=== PATIENT | male | born 1965 | race Caucasian/White ===

== ENCOUNTER 2017-02-18 15:40 | Emergency (ER) | payer OTHER ==
[~2017-02-18] VITALS: Wt 92.6 kg
--- NOTE | 2017-02-18 18:25 | ERD ---
ER Documentation Chief Complaint Chief Complaint RIGHT UPPER EYELID PAIN, PAIN ON LEFT SIDE OF NECK, NO SOB HPI This 51-year-old male patient presents to emergency department for 2 unrelated complaints, first complaint is a right upper eye sore papule with discharge x 3 days. Second complaint is sore throat with palpable mass on left neck. Patient denies runny nose , cough or fever, able to eat and drink with out defect. last saw PMD 90 days ago reports normal exam, denies smoking, take no routine medication patient reports a history of recent amoxicillin use for gingival infection, patient states he needs a deep scalene, states he did not complete antibiotic course for no particular reason. ROS All systems reviewed and are negative except as per history of present illness. Medications Home Meds Active Scripts Tobramycin Sulfate* (Tobrex*) 3.5 Gm Oint..gm., 1 APPLIC RIGHT EYE TID for 7 Days, EA Prov:MOEGENARO 02/18/17 Allergies Allergies: Coded Allergies: No Known Allergy (Unverified , 02/18/17) Physical Exam Vitals Vital Signs Date Time Temp Pulse Resp B/P Pulse Ox O2 Delivery O2 Flow Rate FiO2 02/18/17 15:44 98.4 83 17 145/100 97 Physical Exam Const: Well-nourished well-appearing well-hydrated 51-year-old male patient in no acute distress Head: Eye Exam: Visual Acuity: [XOXOXO] Lac ducts/glands: No swelling Lids w/ evertion: Right upper eye presents with external tender purulent papule mild upper eyelid edema lateral canthus around papule Conj/[place]: Clear, negative Fluorescein/[facility]: Lateral tympanic membranes are translucent, nasal mucosa is edematous, turbinates +2, mucous noted, septal wall without bleeding point, no maxillary or frontal sinus tenderness,, pharynx is dark pink, with no visualized tonsils, uvula is midline without shift, rises and falls with pronation, Neck: Full range of motion.. Unilateral facial swelling over parotid region below the jaw, under the tongue. Resp: Respirations even and unlabored, no respiratory distress Cardio: Abd: Skin: Back: Ext: Neur: Awake and alert Psych: Patient is agitated but calm responds to slow discussion and explanation of treatment plan Result Diagram: 11/24/17 1930 11/24/17 1930 Results 24 hrs Laboratory Tests Test 02/18/17 19:30 White Blood Count 8.010^3/ul Red Blood Count 4.9510^6/ul Hemoglobin 15.4g/dl Hematocrit 44.1% Mean Corpuscular Volume 89.1fl Mean Corpuscular Hemoglobin 31.1pg Mean Corpuscular Hemoglobin Concent 34.9g/dl Red Cell Distribution Width 12.4% Platelet Count 73052^3/UL Mean Platelet Volume 10.0fl Neutrophils % 51.9% Lymphocytes % 34.0% Monocytes % 8.5% Eosinophils % 4.6% Basophils % 0.6% Nucleated Red Blood Cells % 0.0/100WBC Neutrophils # 4.110^3/ul Lymphocytes # 2.710^3/ul Monocytes # 0.710^3/ul Eosinophils # 0.410^3/ul Basophils # 0.110^3/ul Nucleated Red Blood Cells # 0.010^3/ul Sodium Level 144mmol/L Potassium Level 3.8mmol/L Chloride Level 104mmol/L Carbon Dioxide Level 26mmol/L Anion Gap 18 Blood Urea Nitrogen 19mg/dl Creatinine 1.04mg/dl Glucose Level 92mg/dl Calcium Level 9.3mg/dl Total Bilirubin 0.4mg/dl Direct Bilirubin 0.00mg/dl Indirect Bilirubin 0.4mg/dl Aspartate Amino Transf (AST/SGOT) 25IU/L Alanine Aminotransferase (ALT/SGPT) 40IU/L Alkaline Phosphatase 72IU/L Total Protein 8.7g/dl Albumin 4.8g/dl Globulin 3.90g/dl Albumin/Globulin Ratio 1.23 Current Medications Medications (Trade) Dose Ordered Sig/Jose Miguel Route PRN Reason Start Time Stop Time Status Last Admin Dose Admin IV Flush 10 ml 10 ml STK-MED ONCE .ROUTE 02/18/17 20:26 02/18/17 20:27 DC 02/18/17 20:38 Sodium Chloride (NS) 100 ml @ ud STK-MED ONCE .ROUTE 02/18/17 20:26 02/18/17 20:27 DC 02/18/17 20:38 Iohexol (Omnipaque 300mg/ ml) 150 ml STK-MED ONCE .ROUTE 02/18/17 20:27 02/18/17 20:28 DC 02/18/17 20:39 Interpretation text CBC shows no evidence of hemorrhage or infection Chemistry shows no evidence of significant electrolyte abnormalities or renal insufficiency Liver function tests shows no evidence of acute biliary or hepatic dysfunction Lipase shows no evidence of acute pancreatitis . Procedures/MDM PROCEDURE: CT Neck with contrast CLINICAL INDICATION: Pain TECHNIQUE: CT of the neck was performed following the intravenous administration of 100 cc Isovue 300 IV Contrast. Axial images were obtained through the neck with multiplanar reformatted images generated from the axial acquired data. The administered radiation dose was CTDI vol = 15 mGy, DLP = 468 mGy-cm. One or more of the following dose reduction techniques were used: automated exposure control, adjustment of the mA and/or kV according to patient size and/or use of iterative reconstruction technique. DICOM images are available. COMPARISON: No pertinent prior examinations were submitted for comparison. FINDINGS: Skull/Brain: The visualized portions of the brain are grossly unremarkable.The visualized orbits are unremarkable.The visualized paranasal sinuses are well aerated.The bilateral mastoid air cells are within normal limits. Parotid glands: Unremarkable Submandibular glands: Unremarkable Thyroid gland: Unremarkable Vasculature: Unremarkable Lymph nodes: Enlarged lymph nodes are seen within the bilateral submandibular spaces, slightly more prominent on the left. A lymph node just inferior to the left parotid gland has some mild surrounding fat infiltrative changes. This measures up to 13 mm in long axis. Aerodigestive tract: There is streak artifact from dental hardware limiting evaluation of the oral cavity.There is no definite evidence of aerodigestive tract effacement. Other: The lung apices are unremarkable. Osseous structures: No destructive lytic or blastic osseous lesion is identified. IMPRESSION: Left greater than right submandibular adenopathy along with an enlarged and inflamed lymph node just inferior to the left parotid gland. Findings may be related to infection, neoplasm or other entities. No drainable fluid collections are identified. RPTAT: HIKT .Martin Mayer MD, Date Time Electronically viewed and signed by .Martin Mayer MD, on 02/18/2017 21:06 This 51-year-old male patient presents to emergency department for 2 complaints , first complaint is a painful papule on right eye, second complaint is a palpable tender mass on the left side of neck. She denies any dysphagia fever, emergency room course includes history and physical exam no exudative pus from salivary gland , but gland is tender to palpation, plan to obtain CBC, CMP, and CAT scan for suspected parotiditis. Laboratory testing unremarkable for infection or anemia electrolyte dysfunction or renal insufficiency. No hepatitis or other biliary disease. CAT scan with IV contrast radiology interpretation is left greater than right submandibular adenopathy along with an enlarged and inflamed lymph node just anterior to the left parotid gland findings may be related to infection, neoplasm, or other entity no drainable fluid collections are identified. This case discussed with supervising physician Dr. Ruiz, plan to treat with Augmentin 875 1 tab p.o. twice daily 10 days and follow-up with primary care physician for monitoring of lymph node and reevaluation. Patient also has findings of a right upper eyelid hordeolum treat with tobramycin twice daily 7 days. Warm compresses to affected area 3 times daily. Patient is stable with no new complaints during ER course, clinically there is no current evidence to suggest meningitis, sepsis, acute abdomen, acute coronary syndromes, pulmonary embolism or any other emergent condition appearing to require further evaluation or hospitalization. I feel the patient is stable for discharge at this time. I have discussed results, examination findings, the treatment plan with the patient and family present prior to discharge. Indications for emergent reevaluation, side effects of medication were also discussed. All questions were answered. Patient verbalizes understanding and agrees with plan of care. Departure Diagnosis: Primary Impression: Lymph node enlargement Additional Impression: Sty, external Laterality: right Eyelid: upper Qualified Code: H00.011 - Hordeolum externum of right upper eyelid Condition: Good Patient Instructions: Rachel Additional Instructions: Thank you for for coming to [facility] for your care today. Please ask your nurse or provider if you have questions about your care today and do not leave until all your questions have been answered. Please use any medications given as directed and follow-up with your doctor (or the doctor you were referred to) in the next 2-3 days. If you do not have a primary care doctor you may follow up at the [facility] (listed below). You may also use motrin and tylenol as needed for fever and/or pain unless instructed otherwise by your provider or nurse. Indications for more urgent follow-up have been discussed, but you may return to the Emergency Department at ANY time for any worrisome or worsening symptoms. If you have abdominal pain, please know that no test or exam you received is perfect and you should follow up within 8 hours for continued pain. If you had any imaging studies today, such as an X-Ray or CT Scan, these studies will be reviewed later by a radiologist. You will be called if there are important findings that were not identified today, so make sure the contact information you provided at registration is correct. If you received any narcotic pain control medicine today, such as Vicodin, Morphine or Dilaudid, your coordination and judgment may be affected for a number of hours. Please do not drive or operate heavy machinery, and you may want someone to assist you at home. If you were given a prescription for narcotic medication, be aware that it is very addictive- use sparingly and only if necessary. GENARO ROSA Feb 18, 2017 18:25
[2017-02-18 19:44] LABS: BASOPHIL # 0.1 10^3/ul (0.0-0.1); BASOPHILS % 0.6 % (0.0-2.0); EOSINOPHILS # 0.4 10^3/ul (0.0-0.5); EOSINOPHILS % 4.6 % (0.0-7.0); HEMATOCRIT 44.1 % (42.0-52.0); HEMOGLOBIN 15.4 g/dl (14.0-18.0); LYMPHOCYTES # 2.7 10^3/ul (0.8-2.9); MEAN CORPUSCULAR HEMOGLOBIN 31.1 pg (29.0-33.0); MEAN CORPUSCULAR HGB CONC 34.9 g/dl (32.0-37.0); MEAN CORPUSCULAR VOLUME 89.1 fl (82.0-101.0); MONOCYTE # 0.7 10^3/ul (0.3-0.9); MONOCYTES % 8.5 % (0.0-11.0); NEUTROPHIL # 4.1 10^3/ul (1.6-7.5); NEUTROPHILS % 51.9 % (39.0-77.0); PLATELET COUNT 252 10^3/UL (140-415); RED BLOOD COUNT 4.95 10^6/ul (4.70-6.10); RED CELL DISTRIBUTION WIDTH 12.4 % (11.5-14.5)
[2017-02-18 20:09] LABS: ALBUMIN 4.8 g/dl (3.3-4.9); ALBUMIN/GLOBULIN RATIO 1.23; BILIRUBIN,INDIRECT 0.4 mg/dl (0-1.1); BILIRUBIN,TOTAL 0.4 mg/dl (0.2-1.3); CALCIUM 9.3 mg/dl (8.4-10.2); CREATININE 1.04 mg/dl (0.61-1.24); POTASSIUM 3.8 mmol/L (3.5-5.1); TOTAL PROTEIN 8.7 g/dl (6.1-8.1)
[2017-02-18] MEDS ORDERED: SOD CHLORIDE 0.9% 100 ML ONE (20:26)
[2017-02-18] MEDS ORDERED: IOHEXOL 300MG/ML 150 ML BTL ONE (20:27)
--- NOTE | 2017-02-18 21:06 | RADRPT ---
PROCEDURE: CT Neck with contrast CLINICAL INDICATION: Pain TECHNIQUE: CT of the neck was performed following the intravenous administration of 100 cc Isovue 300 IV Contrast. Axial images were obtained through the neck with multiplanar reformatted images gen erated from the axial acquired data. The administered radiation dose was CTDI vol = 15 mGy, DLP = 4 68 mGy-cm. One or more of the following dose reduction techniques were used: automated exposure con trol, adjustment of the mA and/or kV according to patient size and/or use of iterative reconstructio n technique. DICOM images are available. COMPARISON: No pertinent prior examinations were submitted for comparison. FINDINGS: Skull/Brain: The visualized portions of the brain are grossly unremarkable.The visualized orbits are unremarkable.The visualized paranasal sinuses are well aerated.The bilateral mastoid air cells are within normal limits. Parotid glands: Unremarkable Submandibular glands: Unremarkable Thyroid gland: Unremarkable Vasculature: Unremarkable Lymph nodes: Enlarged lymph nodes are seen within the bilateral submandibular spaces, slightly more prominent on the left. A lymph node just inferior to the left parotid gland has some mild surroundin g fat infiltrative changes. This measures up to 13 mm in long axis. Aerodigestive tract: There is streak artifact from dental hardware limiting evaluation of the oral c avity.There is no definite evidence of aerodigestive tract effacement. Other: The lung apices are unremarkable. Osseous structures: No destructive lytic or blastic osseous lesion is identified. IMPRESSION: Left greater than right submandibular adenopathy along with an enlarged and inflamed lymph node just inferior to the left parotid gland. Findings may be related to infection, neoplasm or other entitie s. No drainable fluid collections are identified. RPTAT: HIKT .Martin Mayer MD, MD Date Time Electronically viewed and signed by .Martin Mayer MD, on 02/18/2017 21:06 .T/
[2017-02-18] MEDS ORDERED: TBR.3OO RIGHT EYE (21:27)
[2017-02-18] MEDS ORDERED: AMOX1TAB10 PO (21:32)
[2017-02-18 21:46] VITALS: BP 138/98; PULSE 70; RESP 18; TEMP 98.6
== END 2017-02-18 21:47 | disposition home or self-care (01) ==
LOC: FTE 15:40
DX: H00.011 Hordeolum externum right upper eyelid (principal); R59.9 Enlarged lymph nodes, unspecified
CPT/HCPCS: 36415; 70491; 80053; 85025; Q9967; Z7502; Z7610